=== PATIENT | female | born 1990 | race Caucasian/White ===

== ENCOUNTER → 2017-02-14 19:49 | Observation (INO) ==
--- NOTE | 2017-02-14 19:06 | OB/GYN Progress Note ---
Date of Encounter: 02/14/17 Time of Encounter: 19:02 - Assessment and Plan (1) Non-reactive NST (non-stress test) Status: Acute In office this afternoon Now NST is reactive - Baseline 135 with variability and accels The patient can be discharged home (2) Elevated blood pressure reading Status: Acute BP 141/96 - admits to mild bilateral LE edema. Denies other symptoms. Denies taking medications for elevated BP BP at office visits have been normal PIH labs are negative Recheck BP 127/74 (3) Gestational diabetes mellitus (GDM) Status: Acute Reports taking Metformin and Insulin - follows with [facility] Qualifiers: Gestational diabetes mellitus control: insulin-controlled Trimester: second trimester Qualified Code(s): O24.414 - Gestational diabetes mellitus in , insulin controlled (4) 32 weeks gestation of Status: Acute Subjective - Subjective Principal diagnosis: Non-reactive NST in office Interval history: Ms. Lee is a 26 year old female at 32w3d presenting to L&D from the office due to a non-reactive NST. She reports that she is feeling good movement. Denies contractions, LOF, vaginal bleeding, or vaginal discharge. This has been complicated by Gestational DM treated with Metformin and Insulin and her sugars have mostly been in the 100's. Per chart review she also has a history of essential HTN, but she is not on any meds and her BP has been normal at her office visits. She admits to some mild LE edema. She denies fevers, chills, headaches, vision changes, or abdominal pain. Antepartum ROS: movement normal, contractions, no loss of fluid, no vaginal bleeding Objective - Exam FHR: auscultation normal, category 1 FHR comments: Baseline 140 with variability and accels Auscultation: bilateral: normal Abdomen: Present: normal appearance, soft, gravid. Absent: tenderness Uterus: Present: normal, firm
[2017-02-14 19:14] LABS: Basophils % 0.2 %; Eosinophils # 0.1 K/mcL (0.0-0.6); Eosinophils % 0.7 %; Hematocrit 33.4 % (35.3-44.9); Hemoglobin 11.3 g/dL (11.5-15.4); Immature Granulocytes % 0.4 % (0-4); Lymphocytes # 2.2 K/mcL (0.6-4.6); Lymphocytes % 20.9 %; Mean Corpuscular HGB Conc 33.8 g/dL (31.6-35.5); Mean Corpuscular Hemoglobin 27.2 pg (28.0-33.3); Mean Corpuscular Volume 80.3 fL (83.0-100.0); Mean Platelet Volume 9.8 fL (9.4-12.4); Monocytes # 0.5 K/mcL (0.0-1.3); Neutrophils # 7.6 K/mcL (1.6-8.9); Platelet Count 308 K/mcL (140-400); Red Blood Count 4.16 M/mcL (3.82-4.97); Red Cell Distribution Width 14.1 % (11.5-14.5); Segmented Neutrophils % 72.8 %
[2017-02-14 19:27] LABS: Alanine Aminotransferase 7 Units/L (7-52); Aspartate Amino Transferase 8 Units/L (13-39); BUN/Creatinine Ratio 9 (6-26); Blood Urea Nitrogen 4 mg/dL (6-20); Lactate Dehydrogenase 95 Units/L (140-271); Uric Acid 4.5 mg/dL (2.3-7.6); eGFR For African Americans > 60 (> 60); eGFR For Non-African Americans > 60 (> 60)
== END | disposition home or self-care (01) ==
LOC: 1NENULAB
PROVIDERS: ADMIT Obstetrics & Gynecology; ATTEND Obstetrics & Gynecology

== ENCOUNTER 2017-02-27 22:23 | Observation (INO) ==
--- NOTE | 2017-02-27 22:56 | OB/GYN Progress Note ---
Date of Encounter: 02/27/17 Time of Encounter: 22:53 - Assessment and Plan (1) 34 weeks gestation of Current Visit: Yes Status: Acute admitted for labor evaluation UA collected SVE:Closed per RN (2) NST (non-stress test) reactive on surveillance Current Visit: Yes Status: Acute Reactive NST: FHR baseline 135 bpm moderate variability +15x15 accels no decels noted. No contraction (3) Gestational diabetes mellitus (GDM) Current Visit: No Status: Acute Insulin is managed by MFM Qualifiers: Gestational diabetes mellitus control: insulin-controlled Trimester: second trimester Qualified Code(s): O24.414 - Gestational diabetes mellitus in , insulin controlled Subjective - Subjective Principal diagnosis: Lower back and abdominal pain in Interval history: Ms. Lee is a 26 year old female at 34w2d presenting to L&D with complaints of lower back and abdominal pain that started a couple of days ago. Patient states she isn't sure if the pain is when the baby is moving or if she is afshin. Patient reports back pain is more right sided. She reports that she is feeling good movement.She denies LOF, vaginal bleeding, or vaginal discharge. This has been complicated by Gestational DM treated with Metformin and Insulin and her sugars have mostly been in the 100's. Per chart review she also has a history of essential HTN, but she is not on any meds and her BP has been normal at her office visits. She denies fevers, chills, headaches or vision changes. Antepartum ROS: movement normal, no loss of fluid, no vaginal bleeding Objective - Vital Signs Vital Signs: Intake and Output 02/27/17 02/27/17 02/27/17 07:59 15:59 23:59 Other: Weight 114.7 kg Patient Weight 02/27/17 23:59 Weight 114.7 kg - Exam FHR: auscultation normal, category 1 FHR comments: FHR 130 bpm moderate variability +15x15 accels no decels noted. Auscultation: bilateral: normal Abdomen: Present: normal appearance, soft, gravid Cervical dilation: closed per RN
[2017-02-27 23:34] LABS: Bilirubin,Urine Small (Negative); Blood,Urine Negative (Negative); Clarity,Urine Cloudy (Clear); Color,Urine Dark Yellow (Yellow); Glucose,Urine (UA) Normal (Normal); Ketones,Urine Trace mg/dL (Negative); Leukocyte Esterase,Urine Small (Negative); Nitrite,Urine Negative (Negative); Protein,Urine 30 mg/dL (Neg-Trace); Specific Gravity,Urine 1.025 (1.010-1.025); Urobilinogen,Urine Normal (Normal)
[2017-02-27 23:36] LABS: Hyaline Casts,Urine Few per lpf (None-Few); Squamous Epithelial Cell,Urine Many per lpf (None-Few)
[2017-02-27 23:40] LABS: Amphetamine Screen,Urine Negative ng/mL (Cutoff=1000); Barbiturate Screen,Urine Negative ng/mL (Cutoff=200); Benzodiazepines Screen,Urine Negative ng/mL (Cutoff=200); Cannabinoid Screen,Urine Negative ng/mL (Cutoff = 50); Cocaine Screen,Urine Negative ng/mL (Cutoff= 300); Opiate Screen,Urine Negative ng/mL (Cutoff=300); Phencyclidine Screen,Urine Negative ng/mL (Cutoff=25)
[2017-02-27 23:53] LABS: Bacteria,Urine Few per hpf (None-Few); Mucus,Urine Many (Few); RBC,Urine 0-3 per hpf (0-3)
== END 2017-02-28 00:25 | disposition home or self-care (01) ==
LOC: 1NENULAB
PROVIDERS: ADMIT Advanced Practice Midwife; ATTEND Advanced Practice Midwife

== ENCOUNTER 2017-03-22 09:43 | Inpatient (IN) ==
[2017-03-22] MEDS ORDERED: Oxytocin 20 units/ LR 1000 mL 20 UNIT/1,000 ML BAG IVC ONE (10:06)
[2017-03-22] MEDS ORDERED: Metoclopramide 10 MG/2 ML VIAL IVP ONE (10:06)
[2017-03-22] MEDS ORDERED: Ringers Solution, Lactated 1,000 ML IVC ONE (10:06)
[2017-03-22] MEDS ORDERED: CeFAZolin Premix DUPLEX 2,000 MG/50 ML BAG IVPB ONE (10:06)
[2017-03-22] MEDS ORDERED: Famotidine 20 MG/2 ML VIAL IVP ONE (10:06)
[2017-03-22] MEDS ORDERED: Ringers Solution, Lactated 1,000 ML IVC SCH (10:15)
[2017-03-22] MEDS ORDERED: Oxytocin 20 units/ LR 1000 mL 20 UNIT/1,000 ML BAG IVC SCH ×3 (10:15→15:47)
[2017-03-22 10:45] LABS: Basophils % 0.2 %; Eosinophils # 0.1 K/mcL (0.0-0.6); Eosinophils % 0.7 %; Hematocrit 34.5 % (35.3-44.9); Hemoglobin 11.5 g/dL (11.5-15.4); Immature Granulocytes % 0.6 % (0-4); Lymphocytes # 2.5 K/mcL (0.6-4.6); Lymphocytes % 20.2 %; Mean Corpuscular HGB Conc 33.3 g/dL (31.6-35.5); Mean Platelet Volume 10.3 fL (9.4-12.4); Monocytes # 0.6 K/mcL (0.0-1.3); Monocytes % 4.5 %; Platelet Count 304 K/mcL (140-400); Red Blood Count 4.26 M/mcL (3.82-4.97); Red Cell Distribution Width 14.3 % (11.5-14.5); Segmented Neutrophils % 73.8 %
[2017-03-22] MEDS ORDERED: FLUARIX QUAD 2017-18 36MOS UP/PF 0.5 ML SYRINGE IM ONE (11:02)
--- NOTE | 2017-03-22 11:35 | OB/GYN History & Physical ---
Date of Encounter: 03/22/17 Time of Encounter: 11:32 Assessment and Plan (1) 37 weeks gestation of Current visit: Yes Status: Acute Patient 37 weeks 4 days. Here for repeat . (2) Insulin-dependent diabetes mellitus during , antepartum Current visit: Yes Status: Acute Continue patient's insulin and metformin. Closely monitor after delivery History of Present Illness HPI: Ms. Lee is a 26 year old female at 37 weeks and 4 days presenting to labor and delivery for scheduled . This is a repeat . Patient's first was due to decreased heart tones during delivery. Patient has had a complicated with obesity and gestational diabetes. She is currently taking insulin and metformin for her diabetes. She states her sugars have been well-controlled. She states this morning it was 106. Patient's blood type is O-. GBS positive. Rubella immune. Hepatitis B, Treponema negative. Patient denies any recent fevers or illnesses. Denies any cramping, discharge or vaginal bleeding or leakage of fluid. Denies any urinary symptoms. Past Med Surg Social Fam HX - Past Medical History Medical history: no medical history Psychiatric history: no psych history - Past Surgical History Surgical History: - Social History Smoking Status: Never smoker Smokeless Tobacco Status: No Alcohol use: none Drug use: none - Family History Mother Living Status: Still Living Hx Family Cardiac Disorders: No Hx Family Respiratory Disorders: No Hx Family Cancer: No Hx Family GI Disorders: No Hx Family Endocrine Disorder: No Hx Family Neuromuscular Disorders: Yes (parkinsons) Hx Family Neurologic Disorders: Yes (Parkinsons) Hx Family HEENT Disorders: No Hx Family Autoimmune Disorders: No Obstetrical History - Pregnancies : 2 Para: 1 Term: 1 : 0 Ab's: 0 Livin Medications and Allergies metFORMIN [Glucophage] 500 mg PO BID 12/04/16 [History] Insulin NPH 10 units SQ HS 03/22/17 [History] Insulin NPH 10 units SQ QAM 03/22/17 [History] Vit Calc,Iron,Folic [ Vitamins] 1 each PO 03/22/17 [History] 3 Allergy/AdvReac Type Severity Reaction Status Date / Time Swift AdvReac Rash Verified 02/27/17 22:46 Review of System OB All systems PM: reviewed and no additional remarkable complaints except as stated Exam - Constitutional Constitutional: well developed, well nourished, no acute distress, obese - HEENT HEENT: Normocephaly, Mucus Membranes Moist - Neck Neck exam: normal inspection - Lungs Respiratory exam: CTAB - Cardiovascular Cardiovascular exam: RRR - Abdomen Abdomen: Present: bowel sounds normal, gravid, non tender - Extremities Extremities exam: normal inspection - Uterus Uterus exam: Present: enlarged (gravid), normal contour Results Result Diagrams: 03/22/17 10:37 03/22/17 10:37 Abnormal lab results WBC 12.2 K/mcL (4.3-11.1) H 03/22/17 10:37 Hct 34.5 % (35.3-44.9) L 03/22/17 10:37 MCV 81.0 fL (83.0-100.0) L 03/22/17 10:37 MCH 27.0 pg (28.0-33.3) L 03/22/17 10:37 Neutrophils # 9.0 K/mcL (1.6-8.9) H 03/22/17 10:37 Glucose 109 mg/dL (70-105) H 03/22/17 10:37 All other labs normal. - VTE Reasons for not Prescribing Prophylaxis: Treatment not Indicated - Low risk for VTE
[2017-03-22] MEDS ORDERED: Acetaminophen IV 1,000 MG/100 ML INFUS..BTL IVPB ONE (11:37)
--- NOTE | 2017-03-22 11:37 | Anesthesia Evaluation PreOp ---
Date of Encounter: 03/22/17 Time of Encounter: 11:35 - Past History Planned Operation: Repeat Cardiac History: Denies any Significant Hx Pulmonary History: Denies Any Significant HX WATCH TRAIN ASSEMBLER History: Denies Any Significant HX Other Medical History: Diabetes Type II (IDDM maintained on Insulin, Metformin) Anesthesia History: No Prior Anesthetic Complications, Past Anesthesia (C- section x 1 2012) : Yes (37-4/7 weeks) Alcohol Use: none Drug use: none Medications and Allergies metFORMIN [Glucophage] 500 mg PO BID 12/04/16 [History] Insulin NPH 10 units SQ HS 03/22/17 [History] Insulin NPH 10 units SQ QAM 03/22/17 [History] Vit Calc,Iron,Folic [ Vitamins] 1 each PO 03/22/17 [History] 3 Allergy/AdvReac Type Severity Reaction Status Date / Time Gosper AdvReac Rash Verified 02/27/17 22:46 - Meds/Allergy Pre-op Review Medications Reviewed: Yes Allergies Reviewed: Yes Beta Blockers on Current Med List: No Anesthesia Results - Labs 03/22/17 10:37 03/22/17 10:37 Anesthesia Exam Intake and Output 03/21/17 03/22/17 03/22/17 23:59 07:59 15:59 Other: Weight 111.3 kg Patient Weight 03/22/17 23:59 Weight 111.3 kg 3 Vital Signs Time 1147 1155 BP 134/87 141/82 Pulse 78bpm 92 Resp O2 Sat FHTs 120s-130s 130s Height: 5'3" Weight: 245# BMI = 43.5 NPO (# of Hours): MNOc - HEENT Pupil (Motor): Pupils equal, EOMI Mallampati: III (misaligned dentition) Teeth: Normal (fair dentition) Oral Opening: Greater than 3 - WATCH TRAIN ASSEMBLER LOC: Oriented WATCH TRAIN ASSEMBLER Motor: Normal RUE, Normal LUE, Normal RLE, Normal LLE, Normal Face WATCH TRAIN ASSEMBLER Sensory: Normal: RUE, LUE, RLE, LLE, Face - Cardiac Rhythm: Regular Murmur: None - Pulmonary Breath Sounds: bilateral Clear Respiratory Effort: Symmetrical Anesthesia Assess/Plan ASA Score: 3 ([place], IDDM) Modified [place] Scale for Level of Consciousness: Cooperative, oriented, and tranquil Anesthetic Plan: Regional Monitoring Plan: Standard Monitors Recovery Plan: PACU Anes Supervising Prov Stmt: Pt seen/evaluated, R&B discussed, questions answered and consent obtained. Tyler Vasquez MD
[2017-03-22] MEDS ORDERED: Ibuprofen 400 MG TABLET PO PRN (11:38)
[2017-03-22] MEDS ORDERED: Naloxone 0.4 MG/ML INJ IVP PRN (11:38)
[2017-03-22] MEDS ORDERED: *HR* OxyCODONE/APAP 5/325 TABLET PO PRN ×3 (11:38→15:47)
[2017-03-22] MEDS ORDERED: Ondansetron 4 MG/2 ML VIAL IVP PRN ×3 (11:38→15:47)
[2017-03-22] MEDS ORDERED: *HR* OxyCODONE Immed Rel 5 MG TABLET PO PRN (11:40)
[2017-03-22] MEDS ORDERED: Acetaminophen IV 1,000 MG/100 ML INFUS..BTL IVPB STA (11:43)
[2017-03-22 11:54] LABS: Amphetamine Screen,Urine Negative ng/mL (Cutoff=1000); Barbiturate Screen,Urine Negative ng/mL (Cutoff=200); Benzodiazepines Screen,Urine Negative ng/mL (Cutoff=200); Cannabinoid Screen,Urine Negative ng/mL (Cutoff = 50); Cocaine Screen,Urine Negative ng/mL (Cutoff= 300); Opiate Screen,Urine Negative ng/mL (Cutoff=300); Phencyclidine Screen,Urine Negative ng/mL (Cutoff=25)
[2017-03-22] MEDS ORDERED: *HR* FentaNYL (PF) 100 MCG/2 ML VIAL ONE (12:11)
[2017-03-22] MEDS ORDERED: Morphine Sulfate/PF 5mg/10mL Vial ONE (12:11)
[2017-03-22] MEDS ORDERED: EPHEDrine 50 MG/ML VIAL ONE (12:11)
[2017-03-22] MEDS ORDERED: Water for inj. (sterile) 10 ML IV ONE (12:14)
[2017-03-22] MEDS ORDERED: *HR* Oxytocin 10 UNIT/ML VIAL IM ONE ×2 (12:17→12:57)
[2017-03-22] MEDS ORDERED: Ringers Solution, Lactated 1,000 ML ONE (12:57)
[2017-03-22] MEDS ORDERED: Simethicone 80 MG TAB.CHEW PO PRN ×2 (13:44→15:47)
[2017-03-22] MEDS ORDERED: Rho Immune Globulin 1,500 UNIT SYRINGE IM ONE ×2 (13:44→15:47)
[2017-03-22] MEDS ORDERED: Metoclopramide 10 MG/2 ML VIAL IVP PRN ×2 (13:44→15:47)
[2017-03-22] MEDS ORDERED: Sennosides 8.6 MG TABLET PO PRN ×2 (13:44→15:47)
[2017-03-22] MEDS ORDERED: Ibuprofen 600 MG TABLET PO PRN ×2 (13:44→15:47)
--- NOTE | 2017-03-22 13:44 | OB/GYN Procedure Note ---
Section - Date of procedure: 03/22/17 Preop diagnosis: desires repeat Post-op diagnosis: same Procedure: repeat low transverse Surgeon: Cody Cortez Estimated blood loss (cc): 800 Was there an commercial assistant present: No Anesthesiologist: Marysol Looney Technology Infusion Specialist: Lindsey Hale Anesthesia Type: Spinal section complications: none Disposition: PACU Specimens: Placenta - Infant (s) A Infant Delivery Date: 03/22/17 Infant Delivery Time: 12:56 Presentation: vertex Position: unknown Gender: Male Viability: Viable Pounds: 7 Ounces: 3 Gram Weight: 3.265 kg at 1 minute: 8 at 5 minutes: 9 Shoulder Dystocia: not encountered Specimens collected: cord blood Placenta: complete extraction - Narrative Narrative: Patient was taken to the operating room. After satisfactory anesthesia was achieved patient placed in supine position and De catheter inserted and prepped and draped in usual manner. After appropriate timeout, the abdomen was entered through standard Maylard incision. A Meeta retractor was placed. The peritoneum overlying the lower uterine segment was incised in U-shaped fashion. Fluid was clear. With fundal pressure the head was delivered. The remainder was delivered and the umbilical cord clamped and cut and the infant was handed nurse staff further evaluation. Placenta was removed and sent to pathology for analysis. The uterus was closed with 0 Monocryl. After assurance of hemostasis, the abdomen was closed in a fashion using 0 Vicryl in the fascia and thorough Monocryl in the skin. Sterile dressing was applied. Patient did well as taken to recovery in satisfactory condition. Counts were correct.
--- NOTE | 2017-03-22 15:16 | Anesthesia Evaluation Post Op ---
Date of Encounter: 03/22/17 Time of Encounter: 15:00 - Lungs Lungs: Clear Ascult./Percussion - Airway Airway: Non-obstructed - Cardiovascular Regular Rate - Mental Status Mental Status: Alert & Oriented, Answers Appropriately - Pain Pain Scale: 0 Pain Scale used: Numeric (1 - 10) - Nausea Vomiting Nausea Vomiting: Present (nauseated, no emesis. Nurse getting zofran for patient.) - Hydration Hydration: NPO, De catheter - Discharge PostOp Status: Transfer Patient to floor
[2017-03-23 04:43] LABS: Basophils % 0.2 %; Eosinophils # 0.1 K/mcL (0.0-0.6); Eosinophils % 0.4 %; Hematocrit 29.2 % (35.3-44.9); Immature Granulocytes % 0.5 % (0-4); Lymphocytes # 2.9 K/mcL (0.6-4.6); Mean Corpuscular HGB Conc 33.9 g/dL (31.6-35.5); Mean Corpuscular Volume 79.8 fL (83.0-100.0); Mean Platelet Volume 10.3 fL (9.4-12.4); Monocytes # 0.7 K/mcL (0.0-1.3); Monocytes % 5.3 %; Neutrophils # 9.6 K/mcL (1.6-8.9); Platelet Count 280 K/mcL (140-400); Red Blood Count 3.66 M/mcL (3.82-4.97); Red Cell Distribution Width 13.7 % (11.5-14.5); Segmented Neutrophils % 71.6 %
[2017-03-23 04:44] LABS: Hemoglobin 9.9 g/dL (11.5-15.4)
[2017-03-23] MEDS: Prenatal Vit/FA 1 EACH TABLET PO SCH (08:13)
[2017-03-23] MEDS ORDERED: Prenatal Vit/FA 1 EACH TABLET PO SCH (09:00)
--- NOTE | 2017-03-23 10:29 | OB/GYN Progress Note ---
Date of Encounter: 03/23/17 Time of Encounter: 10:26 - Assessment and Plan (1) S/P section Current Visit: Yes Status: Acute Continue routine care Monitor erythematous area that is above incision Anticipate discharge tomorrow (2) Gestational diabetes mellitus (GDM) Current Visit: Yes Status: Acute Monitoring postprandial BG Qualifiers: Gestational diabetes mellitus control: insulin-controlled Trimester: second trimester Qualified Code(s): O24.414 - Gestational diabetes mellitus in , insulin controlled (3) Anemia, Current Visit: Yes Status: Acute Subjective - Subjective Interval history: Pt reports pain well controlled with PO medications. States she is mentally feeling well. Patient reports: appetite normal, voiding normally, pain well controlled, ambulating normally : doing well, bottle feeding Objective - Vital Signs Latest vital signs: Vital Signs Temp Pulse Pulse Resp BP Pulse Ox 03/23/17 07:30 98.4 F 88 16 112/73 03/23/17 06:05 97.7 F 95 14 114/64 99 03/23/17 00:15 98.3 F 75 14 137/91 98 03/22/17 19:40 97.6 F 83 14 123/80 98 03/22/17 19:01 97.5 F L 85 16 128/83 97 03/22/17 18:30 97.6 F 82 16 125/80 98 03/22/17 18:05 97.6 F 82 16 125/80 98 03/22/17 17:00 97.8 F 82 80 16 119/75 100 03/22/17 16:30 98.9 F 92 90 16 137/82 100 03/22/17 15:52 97.9 F 74 90 16 120/77 100 Intake and Output 03/22/17 03/23/17 03/23/17 23:59 07:59 15:59 Intake Total 300 / 300 200 / 200 Output Total 600 / 600 1045 / 1045 Balance -600 / -600 -745 / -745 200 / 200 Intake: Oral 100 / 100 200 / 200 Tube Feeding 200 / 200 Output: Catheter 600 / 600 1045 / 1045 Other: Meal Breakfast Percent of Meal Consumed 90% Weight 110 kg Blood Glucose* 113 Patient Weight 03/23/17 23:59 Weight 110 kg - Exam Lungs: bilateral: normal Chest: Normal S1, Normal S2 Extremities: Present: normal Abdomen: Present: normal appearance, soft Incision: Present: erythematous (Area marked per RN. Will monitor. Pt denies tenderness. No drainage noted.), dry, intact Uterus: Present: normal, firm Comments: At U - Labs Labs: Laboratory Results - last 24 hr 03/22/17 03/22/17 03/22/17 10:37 10:37 11:30 WBC 12.2 H RBC 4.26 Hgb 11.5 Hct 34.5 L MCV 81.0 L MCH 27.0 L MCHC 33.3 RDW 14.3 Plt Count 304 MPV 10.3 Immature Gran % 0.6 Seg Neutrophils % 73.8 Lymphocytes % 20.2 Monocytes % 4.5 Eosinophils % 0.7 Basophils % 0.2 Neutrophils # 9.0 H Lymphocytes # 2.5 Monocytes # 0.6 Eosinophils # 0.1 Basophils # 0.0 Glucose 109 H POC Glucose Urine Opiates Screen Negative Ur Barbiturates Screen Negative Ur Phencyclidine Scrn Negative Ur Amphetamines Screen Negative U Benzodiazepines Scrn Negative Urine Cocaine Screen Negative U Marijuana (THC) Screen Negative Baby's Blood Type Mother's Blood Type Rhogam Indicated 03/22/17 03/22/17 03/22/17 14:05 14:31 18:57 WBC RBC Hgb Hct MCV MCH MCHC RDW Plt Count MPV Immature Gran % Seg Neutrophils % Lymphocytes % Monocytes % Eosinophils % Basophils % Neutrophils # Lymphocytes # Monocytes # Eosinophils # Basophils # Glucose POC Glucose 105 H 133 H Urine Opiates Screen Ur Barbiturates Screen Ur Phencyclidine Scrn Ur Amphetamines Screen U Benzodiazepines Scrn Urine Cocaine Screen U Marijuana (THC) Screen Baby's Blood Type O RH NEGATIVE Mother's Blood Type O RH NEGATIVE Rhogam Indicated NO 03/23/17 04:26 WBC 13.3 H RBC 3.66 L Hgb 9.9 L D Hct 29.2 L MCV 79.8 L MCH 27.0 L MCHC 33.9 RDW 13.7 Plt Count 280 MPV 10.3 Immature Gran % 0.5 Seg Neutrophils % 71.6 Lymphocytes % 22.0 Monocytes % 5.3 Eosinophils % 0.4 Basophils % 0.2 Neutrophils # 9.6 H Lymphocytes # 2.9 Monocytes # 0.7 Eosinophils # 0.1 Basophils # 0.0 Glucose POC Glucose Urine Opiates Screen Ur Barbiturates Screen Ur Phencyclidine Scrn Ur Amphetamines Screen U Benzodiazepines Scrn Urine Cocaine Screen U Marijuana (THC) Screen Baby's Blood Type Mother's Blood Type Rhogam Indicated
[2017-03-24] MEDS: Prenatal Vit/FA 1 EACH TABLET PO SCH (07:57)
[2017-03-24 08:14] VITALS: BP 122/70
--- NOTE | 2017-03-24 08:58 | Discharge Summary ---
Date of Encounter: 03/24/17 Time of Encounter: 08:55 - Discharge Diagnosis (1) Anemia, Priority: Secondary Status: Acute Comments: Patient will be discharged on iron. Her lochia has decreased. She lost 800 ml in her so drop is appropriate. (2) S/P section Priority: Primary Status: Acute Comments: Discharged home with pain medication. Doing well postoperative course. Ambulation encouraged. - Discharge Medications Prescriptions: OxyCODONE/APAP 5/325 [Percocet 5/325 MG] 1 each PO Q4HR PRN 5 Days #30 tablet PRN Reason: Moderate pain 4-6 Ibuprofen [Motrin] 600 mg PO Q6HR PRN #60 tablet PRN Reason: Cramping Docusate [Colace] 100 mg PO BID #60 capsule Ferrous Fumarate/Iron Ps Cplx [Tandem Dual Action Capsule] 106 mg PO QDPC #30 capsule Home Medications: metFORMIN [Glucophage] 500 mg PO BID 12/04/16 [History] Vit Calc,Iron,Folic [ Vitamins] 1 each PO 03/22/17 [History] Docusate [Colace] 100 mg PO BID #60 capsule 03/24/17 [Rx] Ferrous Fumarate/Iron Ps Cplx [Tandem Dual Action Capsule] 106 mg PO QDPC #30 capsule 03/24/17 [Rx] Ibuprofen [Motrin] 600 mg PO Q6HR PRN #60 tablet 03/24/17 [Rx] OxyCODONE/APAP 5/325 [Percocet 5/325 MG] 1 each PO Q4HR PRN 5 Days #30 tablet [Rx] Allergies/Adverse Reactions: 3 Allergy/AdvReac Type Severity Reaction Status Date / Time Walker AdvReac Rash Verified 02/27/17 22:46 Data Procedures and tests throughout hospitalization: Laboratory Tests 03/22/17 03/22/17 03/22/17 10:37 10:37 11:30 WBC 12.2 H RBC 4.26 Hgb 11.5 Hct 34.5 L MCV 81.0 L MCH 27.0 L MCHC 33.3 RDW 14.3 Plt Count 304 MPV 10.3 Immature Gran % 0.6 Seg Neutrophils % 73.8 Lymphocytes % 20.2 Monocytes % 4.5 Eosinophils % 0.7 Basophils % 0.2 Neutrophils # 9.0 H Lymphocytes # 2.5 Monocytes # 0.6 Eosinophils # 0.1 Basophils # 0.0 Glucose 109 H POC Glucose Urine Opiates Screen Negative Ur Barbiturates Screen Negative Ur Phencyclidine Scrn Negative Ur Amphetamines Screen Negative U Benzodiazepines Scrn Negative Urine Cocaine Screen Negative U Marijuana (THC) Screen Negative Baby's Blood Type Mother's Blood Type Rhogam Indicated 03/22/17 03/22/17 03/22/17 14:05 14:31 18:57 WBC RBC Hgb Hct MCV MCH MCHC RDW Plt Count MPV Immature Gran % Seg Neutrophils % Lymphocytes % Monocytes % Eosinophils % Basophils % Neutrophils # Lymphocytes # Monocytes # Eosinophils # Basophils # Glucose POC Glucose 105 H 133 H Urine Opiates Screen Ur Barbiturates Screen Ur Phencyclidine Scrn Ur Amphetamines Screen U Benzodiazepines Scrn Urine Cocaine Screen U Marijuana (THC) Screen Baby's Blood Type O RH NEGATIVE Mother's Blood Type O RH NEGATIVE Rhogam Indicated NO 03/23/17 03/23/17 03/23/17 04:26 11:25 15:30 WBC 13.3 H RBC 3.66 L Hgb 9.9 L D Hct 29.2 L MCV 79.8 L MCH 27.0 L MCHC 33.9 RDW 13.7 Plt Count 280 MPV 10.3 Immature Gran % 0.5 Seg Neutrophils % 71.6 Lymphocytes % 22.0 Monocytes % 5.3 Eosinophils % 0.4 Basophils % 0.2 Neutrophils # 9.6 H Lymphocytes # 2.9 Monocytes # 0.7 Eosinophils # 0.1 Basophils # 0.0 Glucose POC Glucose 100 H 100 H Urine Opiates Screen Ur Barbiturates Screen Ur Phencyclidine Scrn Ur Amphetamines Screen U Benzodiazepines Scrn Urine Cocaine Screen U Marijuana (THC) Screen Baby's Blood Type Mother's Blood Type Rhogam Indicated 03/23/17 20:49 WBC RBC Hgb Hct MCV MCH MCHC RDW Plt Count MPV Immature Gran % Seg Neutrophils % Lymphocytes % Monocytes % Eosinophils % Basophils % Neutrophils # Lymphocytes # Monocytes # Eosinophils # Basophils # Glucose POC Glucose 154 H Urine Opiates Screen Ur Barbiturates Screen Ur Phencyclidine Scrn Ur Amphetamines Screen U Benzodiazepines Scrn Urine Cocaine Screen U Marijuana (THC) Screen Baby's Blood Type Mother's Blood Type Rhogam Indicated Labs on day of discharge: Labs from last 24 hours 03/23/17 03/23/17 03/23/17 20:49 15:30 11:25 POC Glucose 154 H 100 H 100 H Date of admission: 03/22/17 09:43 Primary care physician: Denise Burnett CNP Consults: 03/22/17 13:44 Consult to Weight Inspector (W&C) [CONS] Routine Reason For Exam: Reason for SW Consult: Recent Move consult to celery wrapper [Consult to Nutrition] [CONS] Stat Comment: Consulting Provider: NUTRITION Reason for Dietary Consult: Diet Education Discharging clinician: Colleen Abad Anticipated date of discharge: 03/24/17 - Patient Status Disposition: Home, Self-Care Condition: Good Functional capacity at discharge: independent ambulation Overall status at discharge: patient is progressing back to baseline - Discharge Instructions Follow Up With: Denise Burnett CNP [Primary Care Provider] - - Diet and Activity Activity: increase activity as tolerated Diet: diabetic diet Hospital Course Procedures: repeat LTCS Reason for admission: section, IUP at term, other (GDM, MFM recommendation to deliver at 37 weeks) Delivery: section Other procedures: none complications: none Discharge diagnosis: IUP at term delivered [place] baby: male Hospital course: Patient progressed from standpoint. Decreased lochia. Ambulating and eating without difficulty on date of discharge. Time Attestation: Total time spent providing and/or coordinating discharge services: Time Spent: Less than 30 minutes - VTE Reasons for not Prescribing Prophylaxis: Treatment not Indicated - Low risk for VTE Documentation of Mechanical Device: Intermittent pneumatic compression device Exam - Constitutional Vitals: Temp Pulse Resp BP Pulse Ox 97.7 F 81 16 122/70 97 03/24/17 07:30 03/24/17 07:30 03/24/17 07:30 03/24/17 07:30 03/23/17 20:00 General appearance IM: cooperative, A&O X 3, obese - Respiratory Respiratory exam: Present: CTAB - Cardiovascular Cardiovascular exam IM: Present: RRR - GI/Abdominal GI/Abdominal exam IM: soft, tenderness (appropriate TTP) Incision: dressed - Uterine Tone: Firm Uterus Position: At Umbilicus
== END 2017-03-24 13:45 | disposition home or self-care (01) | DRG 540 ==
LOC: 1NENULAB 09:43 → 1NENUOBS 15:46
PROVIDERS: ADMIT Obstetrics & Gynecology; ATTEND Obstetrics & Gynecology

== ENCOUNTER 2019-09-26 05:44 | Inpatient (IN) ==
[2019-09-26] MEDS ORDERED: CeFAZolin Syr 3,000MG/30 ML 3,000 MG/30 ML SYRINGE IVPB ONE (05:45)
[2019-09-26] MEDS ORDERED: Famotidine 20 MG/2 ML VIAL IVP ONE (05:45)
[2019-09-26] MEDS ORDERED: Metoclopramide 10 MG/2 ML VIAL IVP ONE (05:45)
[2019-09-26] MEDS ORDERED: Ringers Solution, Lactated 1,000 ML IVC ONE (05:45)
[2019-09-26 06:27] LABS: Amphetamine Screen,Urine Negative ng/mL (Cutoff=1000); Barbiturate Screen,Urine Negative ng/mL (Cutoff=200); Benzodiazepines Screen,Urine Negative ng/mL (Cutoff=200); Cannabinoid Screen,Urine Negative ng/mL (Cutoff = 50); Cocaine Screen,Urine Negative ng/mL (Cutoff= 300); Opiate Screen,Urine Negative ng/mL (Cutoff=300); Phencyclidine Screen,Urine Negative ng/mL (Cutoff=25)
[2019-09-26 06:29] LABS: Hematocrit 34.3 % (35.3-44.9); Hemoglobin 11.3 g/dL (11.5-15.4); Immature Granulocytes % 0.6 % (0-4); Lymphocytes % 20.1 %; Mean Corpuscular HGB Conc 32.9 g/dL (31.6-35.5); Mean Corpuscular Hemoglobin 26.6 pg (28.0-33.3); Mean Corpuscular Volume 80.7 fL (83.0-100.0); Mean Platelet Volume 10.3 fL (9.4-12.4); Platelet Count 317 K/mcL (140-400); Red Blood Count 4.25 M/mcL (3.82-4.97); Red Cell Distribution Width 13.8 % (11.5-14.5); Segmented Neutrophils % 73.2 %; White Blood Count 14.4 K/mcL (4.3-11.1)
[2019-09-26 06:30] LABS: Basophils % 0.3 %; Eosinophils # 0.1 K/mcL (0.0-0.6); Eosinophils % 0.5 %; Lymphocytes # 2.9 K/mcL (0.6-4.6); Monocytes # 0.8 K/mcL (0.0-1.3); Monocytes % 5.3 %; Neutrophils # 10.6 K/mcL (1.6-8.9)
[2019-09-26] MEDS ORDERED: Ringers Solution, Lactated 1,000 ML ONE ×3 (07:20→10:43)
[2019-09-26] MEDS ORDERED: *HR* Morphine Sulfate/PF 10 MG/10 ML AMPUL ONE (07:43)
[2019-09-26] MEDS ORDERED: *HR* FentaNYL (PF) 100 MCG/2 ML VIAL ONE (07:43)
[2019-09-26] MEDS ORDERED: *HR* Phenylephrine 10 MG/ML VIAL ONE (07:45)
[2019-09-26] MEDS ORDERED: *HR* Oxytocin 10 UNIT/ML VIAL IM ONE (08:31)
[2019-09-26] MEDS ORDERED: Acetaminophen IV 1,000 MG/100 ML INFUS..BTL ONE (08:42)
[2019-09-26] MEDS ORDERED: Ondansetron 4 MG/2 ML VIAL IVP ONE (08:43)
[2019-09-26] MEDS ORDERED: *HR* Promethazine 25 MG/ML VIAL IVP PRN (08:43)
[2019-09-26] MEDS ORDERED: *HR* OxyCODONE Immed Rel 5 MG TABLET PO PRN (08:43)
[2019-09-26] MEDS ORDERED: Ketorolac 30 MG/ML VIAL ONE (08:49)
[2019-09-26] MEDS ORDERED: Metoclopramide 10 MG/2 ML VIAL IVP PRN (12:22)
[2019-09-26] MEDS ORDERED: Simethicone 80 MG TAB.CHEW PO PRN (12:22)
[2019-09-26] MEDS ORDERED: Rho Immune Globulin 1,500 UNIT SYRINGE IM ONE (12:22)
[2019-09-26] MEDS ORDERED: Oxytocin 20 units/ LR 1000 mL 20 UNIT/1,000 ML BAG IVC SCH (12:22)
[2019-09-26] MEDS ORDERED: Sennosides 8.6 MG TABLET PO PRN (12:22)
[2019-09-26] MEDS ORDERED: Ondansetron 4 MG/2 ML VIAL IVP PRN (12:22)
[2019-09-26] MEDS ORDERED: Acetaminophen 325 MG TABLET PO PRN (12:22)
[2019-09-26] MEDS ORDERED: *HR* OxyCODONE/APAP 5/325 TABLET PO PRN (12:22)
[2019-09-26] MEDS ORDERED: metroNIDAZOLE 500 MG TABLET PO SCH (15:00)
[2019-09-26] MEDS: cephALEXin 500 MG CAPSULE PO SCH ×2 (16:20→20:12)
[2019-09-26] MEDS: Ibuprofen 600 MG TABLET PO SCH ×2 (19:03→20:12)
[2019-09-27] MEDS: Ibuprofen 600 MG TABLET PO SCH ×2 (05:56→16:44)
[2019-09-27] MEDS: Prenatal Vit/FA 1 EACH TABLET PO SCH (08:18)
[2019-09-27] MEDS: cephALEXin 500 MG CAPSULE PO SCH ×3 (08:19→20:44)
[2019-09-27 08:29] LABS: Basophils % 0.3 %; Eosinophils # 0.1 K/mcL (0.0-0.6); Hematocrit 29.1 % (35.3-44.9); Immature Granulocytes % 0.6 % (0-4); Lymphocytes # 2.2 K/mcL (0.6-4.6); Lymphocytes % 22.7 %; Mean Corpuscular Hemoglobin 27.5 pg (28.0-33.3); Mean Corpuscular Volume 83.4 fL (83.0-100.0); Mean Platelet Volume 10.4 fL (9.4-12.4); Monocytes # 0.6 K/mcL (0.0-1.3); Neutrophils # 6.8 K/mcL (1.6-8.9); Platelet Count 263 K/mcL (140-400); Red Blood Count 3.49 M/mcL (3.82-4.97); Red Cell Distribution Width 13.8 % (11.5-14.5); Segmented Neutrophils % 69.4 %; White Blood Count 9.8 K/mcL (4.3-11.1)
[2019-09-27 08:35] LABS: Hemoglobin 9.6 g/dL (11.5-15.4)
[2019-09-27] MEDS ORDERED: *HR* Metformin 500 MG TABLET PO SCH (21:00)
[2019-09-28] MEDS: Ibuprofen 600 MG TABLET PO SCH (03:11)
[2019-09-28] MEDS: cephALEXin 500 MG CAPSULE PO SCH (07:47)
[2019-09-28] MEDS: Prenatal Vit/FA 1 EACH TABLET PO SCH (07:48)
[2019-09-28 07:49] VITALS: BP 116/66
[2019-09-28] MEDS ORDERED: *HR* Metformin 500 MG TABLET PO SCH (08:00)
== END 2019-09-28 11:50 | disposition home or self-care (01) | DRG 539 ==
LOC: 1NENULAB 05:44 → 1NENUOBS 12:02
PROVIDERS: ADMIT Obstetrics & Gynecology; ATTEND Obstetrics & Gynecology